=== PATIENT | male | born 1945 | race Caucasian/White ===

== ENCOUNTER → 2018-03-08 | Outpatient (CLI) | payer OTHER | LOC: CIMAGING 15:05 | PROVIDERS: ATTEND Family Medicine | DX: E04.2 Nontoxic multinodular goiter (principal) | CPT/HCPCS: 76536-PO ==

== ENCOUNTER 2018-05-02 16:46 | Observation (INO) | payer OTHER ==
[2018-05-02] MEDS ORDERED: ASPIRIN 81 MG CHEWABLE TAB PO ONE (16:48)
--- NOTE | 2018-05-02 16:57 | CPEKG ---
Heart Rate: 52 RR Interval: 1154 P-R Interval: 280 QRSD Interval: 84 QT Interval: 424 QTC Interval: 395 P [place]: 16 QRS [place]: -19 T Wave [place]: 26 EKG Severity - ABNORMAL ECG - EKG Impression: SINUS RHYTHM EKG Impression: FIRST DEGREE AV BLOCK EKG Impression: BORDERLINE LEFT AXIS DEVIATION Electronically Signed By: Tyron Pantoja 02-May-2018 17:33:27
[2018-05-02] MEDS ORDERED: NITROGLYCERIN 2% 1 GM PACKET TP ONE (17:13)
--- NOTE | 2018-05-02 17:32 | EDPHY ---
H & P Stated Complaint: chest pain started 1 hour, nitro x3 taken Time Seen by Provider: 05/02/18 16:48 HPI/ROS: This patient c/o Chest pain, onset with exertion 1 hr [employer]. He describes intermittent burning left arm pain over the past week that seems to be correlated to exertion at times. He had no other associated symptoms and did not recall any injuries to that area of his body prior to the onset of the symptoms. He saw his primary physician, Dr. Lynch on Thursday, 4 days prior to arrival with the symptoms and was noted to have a minor EKG abnormality-(EKG finding details unknown) & was sent to follow up with Dr. Tejeda of Cardiology on Thursday, 2 days prior to arrival. Dr. Tejeda prescribed nitroglycerin for the patient if he has any recurrent episodes & sheduled him for an outpatient stress test for this coming Thursday. Today, while working on his car and exerting himself the patient developed similar left arm pain 4/10 intensity burning in nature and took supple nitroglycerin. After the 1st dose he developed associated substernal chest pressure describes a bandlike tightness 2/ 10 intensity. This is non radiating. He proceed with 2 more supple nitroglycerines with out relief of his symptoms and came in for further evaluation. His brought him here by private vehicle. On arrival he describes ongoing 1/10 chest pressure and mild left arm burning. He notes no other associated symptoms. ROS: Constitutional: No fevers or chills. No generalized weakness HEENT: No complaints new line pulmonary: No shortness of breath, pleuritic symptoms, hematemesis or coughing Cardiovascular: No heart palpitations, lightheadedness or leg swelling GI: No abdominal pain : No urinary symptoms Musculoskeletal: No recent trauma. He does remember having a tight feeling in his left shoulder 10 days ago with a pop with movement in the incident improved. Integumentary: No diaphoresis or rash or other complaints new line endocrine: No complaints complete review of symptoms is otherwise negative. Source: Patient Exam Limitations: No limitations - Medical/Surgical History Hx Asthma: No Hx Chronic Respiratory Disease: No Hx Diabetes: No Hx Cardiac Disease: No Hx Renal Disease: No Hx Cirrhosis: No Hx Alcoholism: No Hx HIV/AIDS: No Hx Splenectomy or Spleen Trauma: No Other PMH: bipolar, ortho surg, cataract surg, spinal fusion, appy, nasl septum surg - Social History Smoking Status: Never smoked Alcohol Use: Occasionally Drug Use: None - Physical Exam Exam: General Appearance: Alert, no distress. Eyes: Pupils equal and round no pallor or injection. ENT, Mouth: Mucous membranes moist. Respiratory: There are no retractions, lungs are clear to auscultation. Cardiovascular: Regular rate and rhythm. No murmur gallop rub. No peripheral edema. No chest wall tenderness Gastrointestinal: Abdomen is soft and nontender, no masses, bowel sounds normal. Neurological: GCS 15 Skin: Warm and dry, no rashes. Musculoskeletal: Neck is supple nontender. Extremities are symmetrical, full range of motion. Psychiatric: Mood and affect are normal DIFFERENTIAL DIAGNOSIS: After history and physical exam differential diagnosis was considered for myocardial ischemic disease, GERD, pneumothorax, pneumonia, musculoskeletal source of pain, aortic dissection Constitutional: Initial Vital Signs Temperature (C) 36.8 C 05/02/18 16:51 Heart Rate 53 L 05/02/18 16:51 Respiratory Rate 18 05/02/18 16:51 Blood Pressure 123/73 H 05/02/18 16:51 O2 Sat (%) 97 05/02/18 16:51 O2 Delivery Mode Room Air Allergies/Adverse Reactions: celecoxib [From Celebrex] Allergy (Intermediate, Verified 05/02/18 16:50) risedronate sodium [From Actonel] Allergy (Intermediate, Verified 05/02/18 16:50 ) STEROIDS Allergy (Severe, Uncoded 05/02/18 16:50) Home Medications: Medication Instructions Recorded Lamictal 12/18/10 SEROQUEL 12/18/10 Nitroglycerin 05/02/18 Medical Decision Making - Diagnostics EKG Interpretation: 12 lead EKG performed shortly after arrival at 4:55 p.m. Reveals a sinus rhythm at 52 Intervals: P R of 280. Other intervals are normal [place]: P of 16, QRS of -19, T of 26 Overall assessment sinus rhythm with first-degree AV block and borderline left axis deviation. No ST segment abnormalities. Overall assessment sinus rhythm first-degree AV block, borderline left axis deviation. No prior EKGs are currently available for comparison. Repeat EKG performed at 5:52 p.m. After nitroglycerin paste with resolution of chest pain Sinus rhythm at 52 Intervals: Unchanged [place]: Unchanged ST segments unchanged Overall assessment sinus rhythm with first-degree AV block borderline left axis deviation with no interval change from 1st EKG by my interpretation. Imaging Results: Imaging Impressions Chest X-Ray 05/02/18 17:21 Impression: 1. No active cardiopulmonary disease seen. Imaging: I viewed and interpreted images myself ED Course/Re-evaluation: IV, monitor, aspirin 324 p. O. 0.5 in nitropaste Studies: CBC is normal, troponin is normal, basic metabolic panel is normal. Patient's chest pain arm pain resolved while being monitored. He had no ectopy or other complaints. I spoke with Dr. Neal on-call for Dr. Tejeda, patient's resp ther. Dr. Neal recommends admission for rule out and stress test in the morning. Patient is agreeable to this. I spoke with Dr. Grady, hospitalist at [facility] accepts patient for admission to PCU. Discussion: Patient with story concerning for angina relieved with nitroglycerin warranting rule out and treadmill test. No red flag findings on workup. The patient is transferred in stable condition with no chest pain or arm pain to [facility] - Data Points Laboratory Results: 05/02/18 05/02/18 17:06 17:05 POC Sodium 142 mEq/L mEq/L (135-145) POC Potassium 3.6 mEq/L mEq/L (3.3-5.0) POC Chloride 107.0 mEq/L mEq/L (97-110) POC Total CO2 25 mEq/L mEq/L (22-31) POC BUN 20 mg/dL mg/dL (7-23) POC Creatinine 1.1 mg/dL mg/dL (0.7-1.3) POC Glucose 97 mg/dL mg/dL (70-100) POC Calcium 9.2 mg/dL mg/dL (8.5-10.4) POC Troponin I 0.01 ng/mL ng/mL (0.00-0.08) Medications Given: Discontinued Medications Aspirin (Aspirin) 324 mg PO EDNOW ONE Stop: 05/02/18 16:49 Last Admin: 05/02/18 17:12 Dose: 324 mg Nitroglycerin (Nitro-Bid 2%) 0.5 inch TP EDNOW ONE Stop: 05/02/18 17:14 Last Admin: 05/02/18 17:18 Dose: 0.5 inch Point of Care Test Results: CBC CBC Collection Date 05/02/18 CBC Collection Time 17:02 WBC 5.8 RBC 4.84 HGB 14.9 HCT 45.2 PLT 173 Neut # 3.7 Neut 64.6 LYMPH # 1.6 LYMPH 27.0 Other WBC # 0.5 Other WBC 8.4 MCV 93.4 Chemistry 05/02/18 05/02/18 17:06 17:05 POC Sodium 142 mEq/L mEq/L (135-145) POC Potassium 3.6 mEq/L mEq/L (3.3-5.0) POC Chloride 107.0 mEq/L mEq/L (97-110) POC Total CO2 25 mEq/L mEq/L (22-31) POC BUN 20 mg/dL mg/dL (7-23) POC Creatinine 1.1 mg/dL mg/dL (0.7-1.3) POC Glucose 97 mg/dL mg/dL (70-100) POC Calcium 9.2 mg/dL mg/dL (8.5-10.4) POC Troponin I 0.01 ng/mL ng/mL (0.00-0.08) Departure - Departure Disposition: [facility] Inpatient Acute Clinical Impression: Acute chest pain Condition: Good
[2018-05-02] MEDS ORDERED: ONDANSETRON DISINTEGRATING 4 MG TAB PO PRN (18:10)
[2018-05-02] MEDS ORDERED: ONDANSETRON 4 MG/2 ML VIAL IVP PRN (18:10)
[2018-05-02] MEDS ORDERED: ACETAMINOPHEN 325 MG TAB PO PRN (18:10)
[2018-05-02] MEDS ORDERED: NITROGLYCERIN 0.4 MG BTL SL PRN (18:14)
[2018-05-02] MEDS ORDERED: QUEtiapine FUMARATE 50 MG TAB PO SCH (21:45)
[2018-05-02] MEDS ORDERED: MELATONIN 3 MG TAB PO SCH (21:45)
--- NOTE | 2018-05-02 21:46 | PDGENHP ---
History and Physical - Chief Complaint chest pain - History of Present Illness This patient a 72 yo male with no hx of CAD who p/w c/o chest pain while working on a heavy car. He describes intermittent burning left arm pain over the past week that seems to be correlated to exertion at times. He had no other associated symptoms and did not recall any injuries to that area of his body prior to the onset of the symptoms. He saw his primary physician, Dr. Lynch on Thursday, 4 days prior to arrival with the symptoms and was noted to have a minor EKG abnormality-(EKG finding details unknown) & was sent to follow up with Dr. Tejeda of Cardiology on Thursday, 2 days prior to arrival. Dr. Tejeda prescribed nitroglycerin for the patient if he has any recurrent episodes & scheduled him for an outpatient stress test for this coming Thursday. Today, while working on his car and exerting himself the patient developed similar left arm pain 4/10 intensity burning in nature and took supple nitroglycerin. After the 1st dose he developed associated substernal chest pressure describes a bandlike tightness 2/10 intensity. This is non radiating. He proceed with 2 more supple nitroglycerines with out relief of his symptoms and came in for further evaluation. In the ER, EKG showed first degree AV block. He was given an Aspiring. Pain resolved. He has no discomfort at this time. Dr. Neal was consulted and he requested admission for further w/u and mgmt. He does not have any family hx of early CAD, non smoker, no HTN, HLD, DM, obesity PMSH: bipolar, ortho surg, cataract surg, spinal fusion, appy, nasl septum surg - Social History Smoking Status: Never smoked Alcohol Use: Occasionally Drug Use: None FMHx: , Mother with Angina in late 70's History Information - Allergies/Home Medication List Allergies/Adverse Reactions: celecoxib [From Celebrex] Allergy (Intermediate, Verified 05/02/18 16:50) risedronate sodium [From Actonel] Allergy (Intermediate, Verified 05/02/18 16:50 ) STEROIDS Allergy (Severe, Uncoded 05/02/18 16:50) Home Medications: Herbals/Supplements -Info Only 1 ea PO DAILY 05/02/18 [Last Taken Unknown] Ibuprofen [Motrin (*)] 200 mg PO BID 05/02/18 [Last Taken Unknown] Melatonin [Melatonin 3 MG (*)] 9 mg PO HS 05/02/18 [Last Taken 05/01/18] Nitroglycerin [Nitrostat 0.4 mg (*)] 0.4 mg SL Q5M PRN 05/02/18 [Last Taken 3 TABS] Quetiapine Fumarate [Quetiapine Fumarate] 50 mg PO HS 05/02/18 [Last Taken 05/01] lamoTRIgine [Lamotrigine] 225 mg PO DAILY 05/02/18 [Last Taken 05/02/18] I have personally reviewed and updated: medical history, social history - Social History Smoking Status: Never smoked Alcohol Use: Occasionally Drug Use: None Review of Systems Review of Systems: ROS: 10pt was reviewed & negative except for what was stated in HPI & below Physical Exam Physical Exam: Temp Pulse Resp BP Pulse Ox 36.6 C 59 L 16 143/67 H 90 L 05/02/18 19:59 05/02/18 19:59 05/02/18 19:59 05/02/18 19:59 05/02/18 19:59 Constitutional: no apparent distress Eyes: PERRL, EOMI Ears, Nose, Mouth, Throat: moist mucous membranes, hearing normal Cardiovascular: regular rate and rhythym, No edema Respiratory: no respiratory distress, no rales or rhonchi, clear to auscultation Gastrointestinal: normoactive bowel sounds, soft, non-tender abdomen Genitourinary: no bladder fullness Skin: warm Musculoskeletal: full muscle strength Neurologic: AAOx3 Psychiatric: interacting appropriately, not anxious, not encephalopathic Lab Data & Imaging Review POC Sodium 142 mEq/L (135-145) 05/02/18 17:06 POC Potassium 3.6 mEq/L (3.3-5.0) 05/02/18 17:06 POC Chloride 107.0 mEq/L (97-110) 05/02/18 17:06 POC Total CO2 25 mEq/L (22-31) 05/02/18 17:06 POC BUN 20 mg/dL (7-23) 05/02/18 17:06 POC Creatinine 1.1 mg/dL (0.7-1.3) 05/02/18 17:06 POC Glucose 97 mg/dL (70-100) 05/02/18 17:06 POC Calcium 9.2 mg/dL (8.5-10.4) 05/02/18 17:06 POC Troponin I 0.01 ng/mL (0.00-0.08) 05/02/18 17:05 Assessment & Plan Assessment: #Acute chest pain (Acute) #first degree AV block #Bipolar Type 2 Plan: observation cardiac r/o Echo, tele, trops stress test tomorrow Cards to consult in a.m, will keep NPO at midnight in case they recommend further testing or intervention check for risk factors
--- NOTE | 2018-05-03 08:10 | CPEKG ---
Heart Rate: 57 RR Interval: 1053 P-R Interval: 304 QRSD Interval: 86 QT Interval: 420 QTC Interval: 409 P [place]: 0 QRS [place]: -16 T Wave [place]: 36 EKG Severity - ABNORMAL ECG - EKG Impression: SINUS RHYTHM EKG Impression: FIRST DEGREE AV BLOCK EKG Impression: BORDERLINE LEFT AXIS DEVIATION Electronically Signed By: Db Neal 05-May-2018 07:31:02
[2018-05-03] MEDS ORDERED: lamoTRIgine 25 MG TAB PO SCH (09:00)
[2018-05-03] MEDS ORDERED: lamoTRIgine 100 MG TAB PO SCH (09:00)
--- NOTE | 2018-05-03 10:48 | PDCARST ---
CAR Stress Test Results Type of Stress Test: TM stress test Indication: L arm pain with exertion Description of Procedure: After informed consent was obtained, pt was exercised according to Josh Protocol. Monitoring was performed with standard stress manager test electrode placement. Vital signs were monitored according to protocol throughout the procedure. STRESS EKG AND HEMODYNAMIC DATA. Exercise time: 10: 30 min. This is equivalent to: 11 METS. Resting heart rate: 55 bpm. Resting blood pressure: 118/68 mmHg. Resting O2 saturation: 93 %. Peak heart rate: 138 bpm. This is 93 % of age predicted maximum heart rate response. Peak blood pressure: 160/74 mmHg. Exercise O2: 91 %. Arrhythmias : None. Reason for termination: The test was stopped due to maximal effort. Symptoms: The patient experienced no typical symptoms of angina during stress or recovery. STRESS TEST ANALYSIS. Baseline ECG: SR. Stress ECG: Sinus tach. 0.5 mm STD consistent with indeterminate exercise induced ECG changes. Rhythm : No arrhythmias noted during exercise and recovery. Blood pressure: Normal blood pressure response to exercise. Exercise tolerance: The patient has normal /above average exercise tolerance adjusted for age and gender. Symptoms: No exercise induced symptoms. Impression: IMPRESSIONS: The Jhaveri Treadmill Score is +7, consistent with low cardiovascular risk (<1% annual mortality). This is an equivocal study due to non-diagnostic ECG changes. Conclusion: Proceed to nuclear stress test.
--- NOTE | 2018-05-03 11:06 | CPEKG ---
Heart Rate: 52 RR Interval: 1154 P-R Interval: 292 QRSD Interval: 86 QT Interval: 420 QTC Interval: 391 P [place]: 28 QRS [place]: -24 T Wave [place]: 15 EKG Severity - ABNORMAL ECG - EKG Impression: SINUS RHYTHM EKG Impression: FIRST DEGREE AV BLOCK EKG Impression: BORDERLINE LEFT AXIS DEVIATION Electronically Signed By: Db Neal 05-May-2018 07:30:57
--- NOTE | 2018-05-03 11:29 | ECHO ---
[email or web address] [address] [address] Main: [phone] Fax: [email or web address] Echocardiogram Name: INDERJIT MILLS MR#: [id number] Study Date: 05/03/2018 Study Time: 08:51 AM Date of : 1945 Age: 72 year(s) Height: 182.9 cm (72 in.) Weight: 103.87 kg (229 lb.) BSA: 2.26 m2 Gender: Male Examination: Echo Indication: Chest Pain Image Quality: Contrast: Requested by: Francisco Javier Grady BP: 117 mmHg/65 mmHg Heart Rate: Rhythm: Indication: Chest Pain Procedure Staff Obstetrician: Ynes Short RDCS Reading Physician: Tristen Rodrigues MD Requesting Provider: Conclusions: Normal study Measurements: Chambers Valvular Assessment AV/MV Valvular Assessment TV/PV Normal Normal Normal Name Value Range Name Value Range Name Value Range Ao Ade (MM): 3.7 cm (2.2 cm-3.7 AV Vmax: 1.34 m/s (1 m/s-1.7 cm) m/s) IVSd (2D): 0.7 cm (0.6 cm-1.1 AV maxP mmHg ( - ) cm) AV meanP mmHg ( - ) LVDd (2D): 5.9 cm (4.2 cm-5.9 MV E Vmax: 0.60 m/s ( - ) cm) MV A Vmax: 0.85 m/s ( - ) LVDs (2D): 3.6 cm (2.1 cm-4 MV E/A: 0.71 ( - ) cm) LVPWd (2D): 0.8 cm (0.6 cm-1 cm) LVEF (MOD4): 62 % (>=55 %) EF Range: 60-65 % Continued Measurements: Chambers Valvular Assessment AV/MV Name Value Name Value LADs: 4.1 cm MV E/E' Septal: 10.40 LADs Lon.7 cm MV E/E' Lateral: 8.90 LA Area: 16.2 cm2 Additional Vessels Patient: INDERJIT MILLS Study Date: 05/03/2018 Page 1 of 2 08:51 AM Name Value Ao Ascendin.0 cm Findings: Left Ventricle: Mildly dilated left ventricle. No LV hypertrophy. Normal global systolic LV function. The ejection fraction is estimated to be 60-65 %. No regional wall motion abnormality. Right Ventricle: Normal size right ventricle. Left Atrium: The left atrium is normal in size. Right Atrium: The right atrium is normal in size. Mitral Valve: The mitral valve is normal in appearance and function. Trivial mitral valve regurgitation. Aortic Valve: The aortic valve is normal in appearance and function. Tricuspid Valve: The tricuspid valve is normal in appearance and function. Pulmonic Valve: The pulmonic valve is normal in appearance and function. Aorta: The aorta is normal. Pericardium: No pericardial effusion. (No Signature Object) Patient: INDERJIT MILLS Study Date: 05/03/2018 Page 2 of 2 08:51 AM [id number]
--- NOTE | 2018-05-03 12:01 | ASMTCASEMG ---
Living Arrangements What is your living Answers: With Spouse arrangement? Who do you live with? Type Of Residence What kind of residence do Answers: House you live in? Discharge Plan Comments Coordination Status Comments Notes: Pts case discussed in tx rounds. Pt is a 72 y/o man admitted for chest pain. Pt will most likely d/c without any needs when medically stable. No therapies ordered at this time. CM available for changes. Plan: Independent Date Signed: 05/03/2018 12:00 PM Electronically Signed By:ZOE Machado
--- NOTE | 2018-05-03 12:56 | PDCARST ---
CAR Stress Test Results Type of Stress Test: nuclear TM stress test Indication: cp/abnormal TM stress test Description of Procedure: After informed consent was obtained, pt was exercised according to Josh Protocol. Monitoring was performed with standard stress scholastic aptitude test grader electrode placement. Vital signs were monitored according to protocol throughout the procedure. STRESS EKG AND HEMODYNAMIC DATA. Exercise time: 11 min. This is equivalent to: 11.3 METS. Resting heart rate: 69 bpm. Resting blood pressure: 110/70 mmHg. Resting O2 saturation: 94 %. Peak heart rate: 140 bpm. This is 95 % of age predicted maximum heart rate response. Peak blood pressure: 158/80 mmHg. Exercise O2: 96 %. Arrhythmias: occasional PVCs at peak exercise. Reason for termination: The test was stopped due to maximal effort. Symptoms: The patient experienced no typical symptoms of angina during stress or recovery. STRESS TEST ANALYSIS. Baseline ECG: sinus rhythm. Stress ECG: sinus tach. exercise induced ischemic ECG changes: 1 mm flat to upsloping STD. Rhythm: occasional PVCs noted during exercise and recovery. Blood pressure: normal blood pressure response to exercise. Exercise tolerance: The patient has normal exercise tolerance adjusted for age and gender. Symptoms: No exercise induced symptoms. Impression: IMPRESSIONS: Stress ECG equivocal for ischemia. The Jhaveri Treadmill Score is +7, consistent with low cardiovascular risk (<1% annual mortality). Conclusion: Await nuclear images.
[2018-05-03 16:29] VITALS: BP 118/65
--- NOTE | 2018-05-03 17:06 | PDDCSUM ---
Discharge Summary Discharge Summary: DISCHARGE SUMMARY FOLLOW-UP ITEMS: Reassess possible Wenckebach with Dr. Carranza later this week DATE OF ADMISSION: 05/02/2018 DATE OF DISCHARGE: 05/03/2018 DISCHARGE DIAGNOSES: 1. Acute chest pain 2. Possible Wenckebach CONSULTATIONS: Cardiology PROCEDURES / IMAGING: Nuclear medicine stress test demonstrating no evidence of defect Echocardiogram demonstrating no focal wall motion abnormalities, ejection fraction 60-65% CHIEF COMPLAINT: Acute chest pain and left shoulder pain SUBJECTIVE: Patient is feeling well at time discharge, he does not have any pain PHYSICAL EXAM ON DISCHARGE: Systolic blood pressure 110, heart rate 50-60, afebrile overnight, satting on room air, alert awake oriented x3, full range of motion of the left shoulder without any inducible pain, no tenderness to palpation over the left sub a.c. Or posterior shoulder joint, no tenderness to palpation over the left biceps or deltoid muscle, no tenderness to palpation over the left pectoralis muscle or the sternum, no skin rash over the left arm or left chest LABS ON DISCHARGE: Hemoglobin A1c 5.6%, creatinine 1.1, troponin negative x3, LDL 72 HOSPITAL COURSE BY PROBLEM: Patient presented with acute chest pain and was ruled out for acute coronary syndrome with negative troponin x3, no ischemic changes on EKG, as ruled out for obstructive coronary disease with a negative nuclear medicine stress test. He not have any evidence of tachy arrhythmias on telemetry to account for his chest discomfort, although he did have a very brief, self-limited episode of possible Wenckebach heart block. Patient was asymptomatic at that time. Cardiology reviewed his rhythm strip and he will follow up with Dr. Carranza for this issue. I suspect that the etiology of his pain is more musculoskeletal in nature, as the patient has been utilizing his left upper extremity fairly vigorously recently and he has also experienced what sounds like some very mild left shoulder joint dislocation, preceding his discomfort I recommended that he follow up with his primary care provider for this issue and also continue to see his massage therapist. DISCHARGE MEDICATIONS: Please see official discharge medication reconciliation sheet in chart , continue all home medications without any changes. DISCHARGE INSTRUCTIONS: Please follow up with primary care provider as well as Dr. Jarrod Carranza.
== END 2018-05-03 16:32 | disposition home or self-care (01) ==
LOC: CED 16:46 → CEDHOLD 18:10 → F2W 19:40
PROVIDERS: ADMIT Family Medicine; ATTEND Family Medicine
DX: R07.9 Chest pain, unspecified (principal); M25.512 Pain in left shoulder; F31.9 Bipolar disorder, unspecified
CPT/HCPCS: 71046; 78452; 93005; 93017; 93306; G0378; 80048-PO; 84484-PO

== ENCOUNTER 2019-05-05 01:20 | Emergency (ER) | payer OTHER | END 2019-05-05 05:40 | disposition short-term general hospital (02) | LOC: CED 01:20 → CEDHOLD 03:51 ==